=== PATIENT | female | born 1980 ===

== ENCOUNTER 2021-05-02 07:09 | Emergency (ER) | payer SELFPAY ==
[~2021-05-02] VITALS: Ht 165.1 cm; Wt 65.9 kg
[2021-05-02 07:11] VITALS: BP 123/81
[2021-05-02] MEDS ORDERED: OMEP10CASR PO (07:19)
[2021-05-02] MEDS ORDERED: [UNRECOGNIZED DRUG - CODE] PO (07:19)
== END 2021-05-02 07:31 | disposition left against medical advice (07) ==
LOC: M ED 07:09
DX: Z53.21 Procedure and treatment not carried out due to patient leaving prior to being seen by health care provider (principal)